=== PATIENT | male | born 1990 | race Caucasian/White ===

== ENCOUNTER 2022-01-08 14:19 | Emergency (ER) | payer SELFPAY ==
[~2022-01-08] VITALS: Ht 170.2 cm; Wt 81.2 kg
[2022-01-08] MEDS ORDERED: IBUPROFEN 600 MG TABLET PO ONE (14:45)
--- NOTE | 2022-01-08 14:49 | NUR ---
Patient transported to radiology via ambulatory, accompanied by technical professional.
--- NOTE | 2022-01-08 14:55 | NUR ---
ER at bedside examining patient.
[2022-01-08 15:02] VITALS: BP_SYST 127
--- NOTE | 2022-01-08 15:05 | NUR ---
Patient to ER bed 8 to gown for evaluation. Side rails up. Report given to Derek ESCOBAR.
--- NOTE | 2022-01-08 15:05 | NUR ---
Returned from radiology, back to [facility].
[2022-01-08] MEDS ORDERED: PROPOFOL 200MG/ 20ML VIAL (DIPRIVAN) IV ONE ×2 (15:30→16:15)
--- NOTE | 2022-01-08 15:40 | NUR ---
In ER 8 C/O L shoulder pain Xray done Awaiting result
[2022-01-08] MEDS ORDERED: NAPR-690 PO (16:29)
[2022-01-08 16:57] VITALS: BP_SYST 138
--- NOTE | 2022-01-08 17:03 | NUR ---
Consious sedation completed with relocation of L shoulder successful Charting completed on sedation form Patient no LOC X 3. Ambulating safely and tolerating PO intake. MD has reassessed and Dc'd home To exit
--- NOTE | 2022-01-08 17:05 | NUR ---
Patient given written and verbal discharge instructions and verbalizes understanding. ER MD discussed with patient the results and treatment provided. Patient in stable condition. ID arm band removed. IV catheter removed intact and dressing applied, no active bleeding. Patient educated on pain management and to follow up with PMD. Pain Scale . Opportunity for questions provided and answered. Medication side effect fact sheet provided.
== END 2022-01-08 17:05 | disposition home or self-care (01) ==
LOC: SED 14:19
DX: S43.005A Unspecified dislocation of left shoulder joint, initial encounter (principal); Z79.899 Other long term (current) drug therapy; X58.XXXA Exposure to other specified factors, initial encounter; Y93.89 Activity, other specified; Y92.89 Other specified places as the place of occurrence of the external cause; Y99.8 Other external cause status
CPT/HCPCS: 23650; 73030; 99285; J2704; 94760